=== PATIENT | female | born 1995 | race Two or more races ===

== ENCOUNTER 2024-05-16 21:05 | Emergency (ER) | payer BC, OTHER ==
[~2024-05-16] VITALS: Ht 160 cm; Wt 72.6 kg
[2024-05-16] MEDS ORDERED: VASOTEC20 M1 (21:58)
[2024-05-16] MEDS ORDERED: LABETALOL HCL100 MG (21:58)
[2024-05-16] MEDS ORDERED: CHILDREN'S ASPI81 MG (21:59)
[2024-05-16] MEDS ORDERED: CLONIDINE HCL 0.1 MG TABLET PO ONE (22:14)
[2024-05-16] MEDS ORDERED: cloNIDine HCL 0.2 MG TABLET PO ONE (22:15)
[2024-05-16] MEDS ORDERED: LORazepam 1 MG TABLET PO ONE (22:30)
== END 2024-05-16 23:37 | disposition home or self-care (01) ==
LOC: ER 21:07
DX: I10 Essential (primary) hypertension (principal); Z88.0 Allergy status to penicillin